=== PATIENT | female | born 1940 | race Caucasian/White ===

== ENCOUNTER 2022-05-14 12:52 | Day surgery (SDC) | payer MEDICARE ==
[~2022-05-14] VITALS: Ht 157.5 cm; Wt 81.6 kg
[2022-05-14 14:07] LABS: HEMOGLOBIN 12.6 gm/dl (12.3-15.3); RED BLOOD COUNT 3.88 M/UL (4.00-5.10); WHITE BLOOD COUNT 5.6 K/UL (4.5-11.0)
[2022-05-14] MEDS ORDERED: GABAPENTIN100 MG PO (17:28)
[2022-05-14] MEDS ORDERED: AMLODIPINE BESYL5 MG PO (17:28)
[2022-05-14] MEDS ORDERED: LOSARTAN POTAS100 MG PO (17:29)
[2022-05-14] MEDS ORDERED: PROTONIX 40 MG40 M1 PO (17:29)
[2022-05-14] MEDS ORDERED: ALPRAZOLAM0.5 MG PO (17:30)
[2022-05-14] MEDS ORDERED: WARFARIN SODIUM3 MG PO ×2 (17:30→17:32)
[2022-05-14] MEDS ORDERED: LOPRESSOR 50 MG50 MG PO (17:35)
[2022-05-14] MEDS ORDERED: LOPRESSOR50 MG PO (17:36)
[2022-05-14] MEDS ORDERED: COQMAX UBIQUIN200 MG PO (17:36)
[2022-05-14] MEDS ORDERED: FISH OIL 1,0001 EACH PO (17:37)
[2022-05-14] MEDS ORDERED: ANTI-GAS180 MG PO (17:38)
[2022-05-14] MEDS ORDERED: VITAMIN D350 MCG PO (17:39)
[2022-05-14] MEDS ORDERED: WARFARIN SODIUM1 MG PO (17:40)
== END 2022-05-14 18:27 | disposition home or self-care (01) ==
LOC: ER1 12:52 → ZOBSOF 14:46 → CDU 14:46 → OR 14:46 → M/S 17:03 → OR 18:27
PROVIDERS: Nurse Practitioner
DX: S73.014A Posterior dislocation of right hip, initial encounter (principal); X50.1XXA Overexertion from prolonged static or awkward postures, initial encounter; I10 Essential (primary) hypertension; I48.91 Unspecified atrial fibrillation; G47.30 Sleep apnea, unspecified
CPT/HCPCS: 71045; 73502; 76000; 80053; 85025; 93005; 96374; 96375; 99285; J1100; J1885; J2001; J2270; J2405; J2704; J3010